=== PATIENT | male | born 1950 | race African-American/Black ===

== ENCOUNTER 2018-04-02 04:52 | Observation (INO) ==
[2018-03-27 09:33] LABS: Basophils % 0.7 % (0.0-0.8); Eosinophils # 0.1 10*3/uL (0.0-0.87); Eosinophils % 2.6 % (0.00-10.9); Hematocrit 39.9 VOL% (42.0-52.0); Hemoglobin 12.8 GM/DL (14.0-18.0); Immature Granulocytes % 0.2 %; Immature Granulocytes Absolute 0.01 #; Lymphocytes # 1.6 10*3/uL (1.4-4.0); Lymphocytes % 37.3 % (21.2-54.2); Mean Corpuscular HGB Conc 32.1 GM/DL (32-36); Mean Corpuscular Hemoglobin 32 PG (27-34); Mean Corpuscular Volume 99.3 FL (87-102); Mean Platelet Volume 9.7 FL (9.6-12.0); Monocytes # 0.4 10*3/uL (0.11-0.8); Monocytes % 8.4 % (1.7-12.7); Neutrophils # 2.1 10*3/uL (1.4-7.4); Neutrophils % 50.8 % (38.7-73.9); Platelet Count 224 T/CUMM (130-400); Red Blood Count 4.02 MC/CUMM (3.8-5.5); Red Cell Distribution Width 12.6 % (9.3-17.3); White Blood Count 4.2 T/CUMM (4-12)
[2018-03-27 09:42] LABS: PT Patient Result 10.4 SECS
[2018-03-27 09:56] LABS: Albumin 3.6 G/DL (3.4-5.0); Bilirubin,Total 1.2 MG/DL (0.2-1.0); Calcium 9.6 MG/DL (8.5-10.1); Osmolality,Calculated 280.3 MOS/KG (273-304); Potassium 3.9 MMOL/L (3.5-5.1); Total Protein 7.7 G/DL (6.4-8.3)
[2018-04-02] MEDS ORDERED: ceFAZolin 1,000 MG in SYRINGE 1 EACH IV ONE (07:00)
[2018-04-02] MEDS ORDERED: ONDANSETRON 4 MG/2 ML VIAL IV PRN (10:58)
[2018-04-02] MEDS ORDERED: ACETAMINOPHEN 325 MG TABLET PO PRN (10:58)
[2018-04-02] MEDS ORDERED: traMADol 50 MG TABLET PO SCH (11:00)
[2018-04-02] MEDS ORDERED: POTASSIUM CHLORIDE 20 MEQ TABLET PO PRN (13:38)
[2018-04-02] MEDS: APIXABAN 2.5 MG TABLET PO SCH (20:52)
[2018-04-02] MEDS: ASCORBIC ACID 500 MG TABLET PO SCH (20:53)
[2018-04-02] MEDS ORDERED: TAMSULOSIN 0.4 MG CAPSULE PO SCH (21:00)
[2018-04-02] MEDS ORDERED: ROSUVASTATIN 20 MG TABLET PO SCH (21:00)
[2018-04-03 04:50] VITALS: BP 126/79
[2018-04-03 05:42] LABS: Basophils % 0.6 % (0.0-0.8); Eosinophils # 0.2 10*3/uL (0.0-0.87); Hematocrit 37.4 VOL% (42.0-52.0); Immature Granulocytes % 0.2 %; Immature Granulocytes Absolute 0.01 #; Lymphocytes # 2.4 10*3/uL (1.4-4.0); Lymphocytes % 44.6 % (21.2-54.2); Mean Corpuscular HGB Conc 32.1 GM/DL (32-36); Mean Corpuscular Hemoglobin 32 PG (27-34); Mean Corpuscular Volume 98.4 FL (87-102); Mean Platelet Volume 10.1 FL (9.6-12.0); Monocytes # 0.4 10*3/uL (0.11-0.8); Monocytes % 8.3 % (1.7-12.7); Neutrophils # 2.3 10*3/uL (1.4-7.4); Neutrophils % 43.3 % (38.7-73.9); Platelet Count 211 T/CUMM (130-400); Red Cell Distribution Width 12.5 % (9.3-17.3); White Blood Count 5.3 T/CUMM (4-12)
[2018-04-03 06:56] LABS: Osmolality,Calculated 283.1 MOS/KG (273-304); Potassium 3.2 MMOL/L (3.5-5.1)
[2018-04-03] MEDS ORDERED: PANTOPRAZOLE 40 MG TABLET PO SCH (09:00)
[2018-04-03] MEDS ORDERED: GABAPENTIN 100 MG CAPSULE PO SCH (09:00)
[2018-04-03] MEDS ORDERED: LOSARTAN/HCTZ 50-12.5 MG TABLET PO SCH (09:00)
[2018-04-03] MEDS ORDERED: ASPIRIN EC 81 MG TABLET PO SCH (09:00)
[2018-04-03] MEDS ORDERED: POTASSIUM CHLORIDE 20 MEQ TABLET PO SCH (09:00)
[2018-04-03] MEDS: APIXABAN 2.5 MG TABLET PO SCH (10:22)
[2018-04-03] MEDS: ASCORBIC ACID 500 MG TABLET PO SCH (10:22)
== END 2018-04-03 14:25 | disposition home health service (06) ==
LOC: N.SDSINP 04:52 → N.RAD 04:52 → N.SDSINP 04:53 → N.4E 13:14
PROVIDERS: ADMIT Surgery; ATTEND Surgery

== ENCOUNTER 2018-06-18 05:46 | Inpatient (IN) ==
[2018-06-07 11:29] LABS: Basophils % 0.4 % (0.0-0.8); Eosinophils # 0.1 10*3/uL (0.0-0.87); Eosinophils % 2.6 % (0.00-10.9); Hematocrit 39.1 VOL% (42.0-52.0); Hemoglobin 12.7 GM/DL (14.0-18.0); Immature Granulocytes % 0.2 %; Immature Granulocytes Absolute 0.01 #; Lymphocytes # 2.2 10*3/uL (1.4-4.0); Lymphocytes % 40.3 % (21.2-54.2); Mean Corpuscular HGB Conc 32.5 GM/DL (32-36); Mean Corpuscular Hemoglobin 33 PG (27-34); Mean Corpuscular Volume 100.5 FL (87-102); Mean Platelet Volume 9.5 FL (9.6-12.0); Monocytes # 0.5 10*3/uL (0.11-0.8); Monocytes % 9.6 % (1.7-12.7); Neutrophils # 2.5 10*3/uL (1.4-7.4); Neutrophils % 46.9 % (38.7-73.9); Platelet Count 256 T/CUMM (130-400); Red Blood Count 3.89 MC/CUMM (3.8-5.5); Red Cell Distribution Width 12.7 % (9.3-17.3); White Blood Count 5.3 T/CUMM (4-12)
[2018-06-07 11:39] LABS: INR 0.9; PT Patient Result 10.2 SECS
[2018-06-07 12:14] LABS: Albumin 3.5 G/DL (3.4-5.0); Bilirubin,Total 0.8 MG/DL (0.2-1.0); Calcium 9.1 MG/DL (8.5-10.1); Osmolality,Calculated 275.5 MOS/KG (273-304); Potassium 3.5 MMOL/L (3.5-5.1); Total Protein 7.4 G/DL (6.4-8.3)
[2018-06-18] MEDS ORDERED: FAMOTIDINE 20 MG TABLET PO ONE (06:00)
[2018-06-18] MEDS ORDERED: THROMBIN TOPICAL (RECOMBINANT) 5,000 UNIT VIAL TOP ONE (06:24)
[2018-06-18] MEDS ORDERED: TISSUE ADHESIVE 1 EACH APPLICATOR TOP ONE (06:24)
[2018-06-18] MEDS ORDERED: LIDOCAINE 2% TOP JELLY 20 ML VIAL INTRAURETH ONE (06:24)
[2018-06-18] MEDS ORDERED: LIDOCAINE 1% 20 ML VIAL ONE (06:24)
[2018-06-18] MEDS ORDERED: HEPARIN 5,000 UNIT/1 ML VIAL ONE (06:24)
[2018-06-18] MEDS ORDERED: ceFAZolin 1,000 MG in SYRINGE 1 EACH IV ONE (06:30)
[2018-06-18] MEDS ORDERED: LACTATED RINGERS 1,000 ML IV SCH (06:30)
[2018-06-18] MEDS ORDERED: HEPARIN/NACL 0.9% 2 UNITS/ML 500 ML IV ONE (06:33)
[2018-06-18] MEDS ORDERED: NITROGLYCERIN DRIP 50 MG/250 ML BOTTLE IV ONE (06:33)
[2018-06-18] MEDS ORDERED: PHENYLEPHRINE DRIP 20 MG/250 ML PREMIX IV ONE ×2 (06:33→11:36)
[2018-06-18] MEDS ORDERED: FAMOTIDINE 20 MG TABLET ONE (06:39)
[2018-06-18] MEDS ORDERED: ceFAZolin 1,000 MG VIAL ONE (06:39)
[2018-06-18] MEDS ORDERED: HEPARIN/NACL 0.9% 2 UNITS/ML 3,000 ML IV ONE (07:12)
[2018-06-18] MEDS ORDERED: ACETAMINOPHEN 325 MG TABLET PO PRN ×2 (11:09→11:13)
[2018-06-18] MEDS ORDERED: ONDANSETRON ODT 4 MG TABLET PO PRN (11:10)
[2018-06-18] MEDS ORDERED: ONDANSETRON 4 MG/2 ML VIAL IV PRN (11:11)
[2018-06-18] MEDS ORDERED: HYDROmorphone 2 MG/1 ML VIAL IV PRN (11:11)
[2018-06-18] MEDS ORDERED: NICOTINE POLACRILEX 2 MG BC SCH (11:15)
[2018-06-18] MEDS ORDERED: fentaNYL 100 MCG/2 ML VIAL ONE (11:36)
[2018-06-18] MEDS ORDERED: PROPOFOL 200 MG/20 ML VIAL IV ONE (11:36)
[2018-06-18] MEDS ORDERED: DESFLURANE 1 UNIT/15 MINUTE INH ONE (11:36)
[2018-06-18] MEDS ORDERED: ONDANSETRON 4 MG/2 ML VIAL ONE (11:37)
[2018-06-18] MEDS ORDERED: MIDAZOLAM 2 MG/2 ML VIAL ONE (11:37)
[2018-06-18] MEDS ORDERED: ROCURONIUM 100 MG/10 ML VIAL IV ONE (11:37)
[2018-06-18] MEDS ORDERED: SODIUM CHLORIDE 0.9% 1,000 ML IV ONE (11:37)
[2018-06-18] MEDS: LACTATED RINGERS 1,000 ML IV SCH ×2 (20:11→20:51)
[2018-06-18] MEDS ORDERED: ROSUVASTATIN 20 MG TABLET PO SCH (21:00)
[2018-06-18] MEDS ORDERED: TAMSULOSIN 0.4 MG CAPSULE PO SCH (21:00)
[2018-06-19] MEDS: LACTATED RINGERS 1,000 ML IV SCH (04:06)
[2018-06-19 04:41] LABS: Hemoglobin 10.9 GM/DL (14.0-18.0)
[2018-06-19 05:14] LABS: Calcium 8.4 MG/DL (8.5-10.1); Osmolality,Calculated 281.3 MOS/KG (273-304); Potassium 3.2 MMOL/L (3.5-5.1)
[2018-06-19] MEDS ORDERED: POTASSIUM CHLORIDE 20 MEQ TABLET PO ONE (07:48)
[2018-06-19] MEDS ORDERED: LOSARTAN/HCTZ 50-12.5 MG TABLET PO SCH (09:00)
[2018-06-19] MEDS ORDERED: APIXABAN 2.5 MG TABLET PO SCH (09:00)
[2018-06-19] MEDS ORDERED: FISH OIL PO SCH (09:00)
[2018-06-19] MEDS ORDERED: FATTY ACIDS PO SCH (09:00)
[2018-06-19] MEDS ORDERED: ASCORBIC ACID 500 MG TABLET PO SCH (09:00)
[2018-06-19] MEDS ORDERED: CYANOCOBALAMIN 250 MCG PO SCH (09:00)
[2018-06-19] MEDS ORDERED: OMEGA PO SCH (09:00)
[2018-06-19] MEDS ORDERED: ASPIRIN EC 81 MG TABLET PO SCH (09:00)
[2018-06-19] MEDS ORDERED: GABAPENTIN 100 MG CAPSULE PO SCH (09:00)
[2018-06-19] MEDS ORDERED: POTASSIUM CHLORIDE 20 MEQ TABLET PO SCH (09:00)
[2018-06-19 12:09] VITALS: BP 137/81
== END 2018-06-19 14:00 | disposition home health service (06) | DRG 269 ==
LOC: N.SDSINP 05:46 → N.4E 12:34
PROVIDERS: ADMIT Surgery; ATTEND Surgery
PROC: IRERAAA (2018-06-18 07:05)

== ENCOUNTER 2021-04-20 16:00 | Inpatient (IN) ==
[2021-04-20] MEDS ORDERED: SODIUM CHLORIDE 0.9% 1,000 ML IV STA (16:38)
[2021-04-20 17:06] LABS: Hematocrit 23.9 VOL% (42.0-52.0); Hemoglobin 7.2 GM/DL (14.0-18.0); Immature Granulocytes % 0.8 %; Immature Granulocytes Absolute 0.05 #; Lymphocytes # 0.2 10*3/uL (1.4-4.0); Lymphocytes % 2.5 % (21.2-54.2); Mean Corpuscular HGB Conc 30.1 GM/DL (32-36); Mean Corpuscular Volume 99.6 FL (87-102); Mean Platelet Volume 10.4 FL (9.6-12.0); Monocytes % 3.4 % (1.7-12.7); Neutrophils % 93.3 % (38.7-73.9); Platelet Count 197 T/CUMM (130-400); White Blood Count 6.5 T/CUMM (4-12)
[2021-04-20 17:31] LABS: Albumin 1.7 G/DL (3.4-5.0); Bilirubin,Total 0.8 MG/DL (0.20-1.00); Calcium 8.9 MG/DL (8.5-10.1); Osmolality,Calculated 279.4 MOS/KG (273-304); Potassium 3.2 MMOL/L (3.5-5.1); Total Protein 6.4 G/DL (6.4-8.2)
[2021-04-20 17:51] LABS: Band Neutrophils 1 % (0-10); Lymphocytes 2 % (20-55); Segmented Neutrophils 95 % (50-85); Total Cells Counted 100
[2021-04-20 17:52] LABS: Bilirubin,Urine Negative (Negative); Blood, Urine Moderate mg/dL (Negative); Glucose,Urine (UA) Negative (Negative); Ketones,Urine Negative (Negative); Mucus,Urine Few /LPF (Occasional); Nitrite,Urine Negative (Negative); Protein,Urine 100 MG/DL; RBC,Urine 19 /HPF (0-4); Squamous Epithelial Cell,Urine Occasional /HPF (0-10); Urine Appearance CLEAR (Clear); Urine Color Yellow (Yellow); Urine Specific Gravity 1.019 (1.001-1.035)
[2021-04-20 17:55] LABS: Hypochromasia 1+; Microcytosis 1+; Target Cells Slight
[2021-04-20] MEDS ORDERED: cefTRIAXone 1,000 MG in SODIUM CHLORIDE 0.9% 100 ML IV STA (18:26)
[2021-04-20] MEDS ORDERED: GLUCAGON 1 MG VIAL IM PRN (18:46)
[2021-04-20] MEDS ORDERED: DEXTROSE 50% 25 GM/50 ML SYRINGE IV PRN (18:46)
[2021-04-20 18:49] LABS: ABG Base Excess 3.6 MMOL/L (-2.5-2.5); ABG HCO3 27.6 MMOL/L (20-26); ABG PCO2 36.1 MM HG (35-48); ABG PH 7.484 (7.35-7.45); ABG PO2 77.3 MM HG (80-95); ABG TCO2 25.8 MMOL/L (23-27)
[2021-04-20] MEDS ORDERED: SODIUM CHLORIDE 0.9% 1,000 ML IV PRN (18:55)
[2021-04-20] MEDS: POTASSIUM CHLORIDE RIDER 10 MEQ/100 ML PREMIX IV SCH ×4 (19:50→23:26)
[2021-04-20] MEDS: DEXTROSE 5% NACL 0.9% 1,000 ML IV SCH (19:50)
[2021-04-20] MEDS ORDERED: ACETAMINOPHEN 650 MG SUPP RECTAL PRN (20:02)
[2021-04-20] MEDS: HEPARIN 5,000 UNIT/1 ML VIAL SUBCUT SCH (21:21)
[2021-04-20] MEDS: PANTOPRAZOLE 40 MG VIAL IV SCH (21:21)
[2021-04-20] MEDS: INSULIN LISPRO 100 UNIT/ML SUBCUT SCH (21:22)
[2021-04-21] MEDS: HEPARIN 5,000 UNIT/1 ML VIAL SUBCUT SCH ×3 (04:43→20:53)
[2021-04-21 08:24] LABS: Hematocrit 22.9 VOL% (42.0-52.0); Hemoglobin 7.3 GM/DL (14.0-18.0); Immature Granulocytes % 0.9 %; Immature Granulocytes Absolute 0.07 #; Lymphocytes # 0.2 10*3/uL (1.4-4.0); Lymphocytes % 2.5 % (21.2-54.2); Mean Corpuscular HGB Conc 31.9 GM/DL (32-36); Mean Corpuscular Volume 94.2 FL (87-102); Mean Platelet Volume 10.7 FL (9.6-12.0); Monocytes % 4.5 % (1.7-12.7); Neutrophils % 92.1 % (38.7-73.9); Platelet Count 167 T/CUMM (130-400); Red Blood Count 2.43 MC/CUMM (3.8-5.5); Red Cell Distribution Width 16.8 % (9.3-17.3); White Blood Count 7.7 T/CUMM (4-12)
[2021-04-21 08:45] LABS: Lymphocytes 2 % (20-55); Segmented Neutrophils 93 % (50-85); Total Cells Counted 100
[2021-04-21 08:47] LABS: Platelet Estimate Adequate
[2021-04-21 08:48] LABS: Hypochromasia 1+; Microcytosis 1+
[2021-04-21 08:55] LABS: % Iron Saturation 11.5 % (18-50); Ferritin 1471.9 ng/mL (26-388)
[2021-04-21] MEDS: INSULIN LISPRO 100 UNIT/ML SUBCUT SCH ×4 (08:56→20:53)
[2021-04-21] MEDS: PANTOPRAZOLE 40 MG VIAL IV SCH ×2 (08:56→20:53)
[2021-04-21 08:58] LABS: Folate 6.89 NG/ML (5.38-24.0)
[2021-04-21 09:01] LABS: Calcium 8.6 MG/DL (8.5-10.1); Osmolality,Calculated 271.1 MOS/KG (273-304); Potassium 2.9 MMOL/L (3.5-5.1); Thyroid Stimulating Hormone 0.302 uIU/ml (0.358-3.74)
[2021-04-21] MEDS: DEXTROSE 5% NACL 0.9% 1,000 ML IV SCH (09:23)
[2021-04-21] MEDS ORDERED: SODIUM CHLORIDE 0.9% 1,000 ML IV PRN (09:40)
[2021-04-21] MEDS ORDERED: MAGNESIUM SULF RIDER 4 GM/100 ML PREMIX IV PRN (09:42)
[2021-04-21] MEDS: SODIUM CHLORIDE 0.9% 1,000 ML IV SCH (12:33)
[2021-04-21] MEDS: VANCOMYCIN INJ 1,000 MG in SODIUM CHLORIDE 0.9% 250 ML IV SCH ×2 (12:33→23:15)
[2021-04-21] MEDS: POTASSIUM CHLORIDE RIDER 10 MEQ/100 ML PREMIX IV PRN ×5 (15:20→20:52)
[2021-04-21] MEDS: cefTRIAXone 1,000 MG in SODIUM CHLORIDE 0.9% 100 ML IV SCH (20:54)
[2021-04-21] MEDS: MAGNESIUM SULF RIDER 2 GM/50 ML PREMIX IV PRN (22:02)
[2021-04-21] MEDS ORDERED: HEPARIN LOCK FLUSH 500 UNIT/5 ML SYRINGE IV SCH (23:45)
[2021-04-22] MEDS: HEPARIN 5,000 UNIT/1 ML VIAL SUBCUT SCH ×3 (04:30→20:46)
[2021-04-22 04:48] LABS: Basophils % 0.1 % (0.0-0.8); Hematocrit 29.4 VOL% (42.0-52.0); Immature Granulocytes % 0.8 %; Immature Granulocytes Absolute 0.07 #; Lymphocytes # 0.3 10*3/uL (1.4-4.0); Mean Corpuscular HGB Conc 32.3 GM/DL (32-36); Mean Corpuscular Volume 92.2 FL (87-102); Mean Platelet Volume 11.3 FL (9.6-12.0); Monocytes % 3.7 % (1.7-12.7); Neutrophils % 92.4 % (38.7-73.9); Platelet Count 155 T/CUMM (130-400); Red Cell Distribution Width 16.4 % (9.3-17.3); White Blood Count 8.3 T/CUMM (4-12)
[2021-04-22 05:11] LABS: Calcium 8.2 MG/DL (8.5-10.1); Osmolality,Calculated 272.7 MOS/KG (273-304); Potassium 3.1 MMOL/L (3.5-5.1)
[2021-04-22 05:13] LABS: Red Blood Count 3.19 MC/CUMM (3.8-5.5)
[2021-04-22 05:14] LABS: Hemoglobin 9.5 GM/DL (14.0-18.0)
[2021-04-22 05:15] LABS: Lymphocytes 1 % (20-55); Segmented Neutrophils 96 % (50-85); Total Cells Counted 100
[2021-04-22 05:16] LABS: Hypochromasia 1+; Microcytosis 1+; Ovalocytes Slight; Platelet Estimate Adequate; Target Cells Slight
[2021-04-22] MEDS: POTASSIUM CHLORIDE RIDER 10 MEQ/100 ML PREMIX IV PRN ×3 (05:43→09:59)
[2021-04-22] MEDS: SODIUM CHLORIDE 0.9% 1,000 ML IV SCH ×4 (05:44→18:11)
[2021-04-22] MEDS: INSULIN LISPRO 100 UNIT/ML SUBCUT SCH ×4 (07:42→21:19)
[2021-04-22] MEDS: PANTOPRAZOLE 40 MG VIAL IV SCH ×2 (08:52→20:46)
[2021-04-22] MEDS ORDERED: HEPARIN LOCK FLUSH 500 UNIT/5 ML SYRINGE IV PRN (09:00)
[2021-04-22] MEDS: VANCOMYCIN INJ 1,000 MG in SODIUM CHLORIDE 0.9% 250 ML IV SCH ×2 (12:24→23:28)
[2021-04-22] MEDS: ROSUVASTATIN 20 MG TABLET PO SCH (20:45)
[2021-04-22] MEDS: APIXABAN 2.5 MG TABLET PO SCH (20:45)
[2021-04-22] MEDS: cefTRIAXone 1,000 MG in SODIUM CHLORIDE 0.9% 100 ML IV SCH (20:46)
[2021-04-23] MEDS: SODIUM CHLORIDE 0.9% 1,000 ML IV SCH ×3 (03:37→19:15)
[2021-04-23] MEDS: HEPARIN 5,000 UNIT/1 ML VIAL SUBCUT SCH ×3 (05:18→21:09)
[2021-04-23 05:31] LABS: Basophils % 0.1 % (0.0-0.8); Eosinophils % 0.1 % (0.00-10.9); Hematocrit 30.2 VOL% (42.0-52.0); Hemoglobin 9.8 GM/DL (14.0-18.0); Immature Granulocytes % 0.6 %; Immature Granulocytes Absolute 0.04 #; Lymphocytes # 0.2 10*3/uL (1.4-4.0); Lymphocytes % 3.1 % (21.2-54.2); Mean Corpuscular HGB Conc 32.5 GM/DL (32-36); Mean Corpuscular Volume 93.8 FL (87-102); Mean Platelet Volume 11.2 FL (9.6-12.0); Monocytes % 3.2 % (1.7-12.7); Neutrophils % 92.9 % (38.7-73.9); Platelet Count 163 T/CUMM (130-400); Red Blood Count 3.22 MC/CUMM (3.8-5.5); Red Cell Distribution Width 16.4 % (9.3-17.3); White Blood Count 6.8 T/CUMM (4-12)
[2021-04-23 05:57] LABS: Calcium 8.1 MG/DL (8.5-10.1); Osmolality,Calculated 280.3 MOS/KG (273-304); Potassium 2.9 MMOL/L (3.5-5.1)
[2021-04-23 05:58] LABS: Anisocytosis 2+; Band Neutrophils 25 % (0-10); Burr Cells Few; Platelet Estimate Normal; Segmented Neutrophils 74 % (50-85); Total Cells Counted 100
[2021-04-23] MEDS: INSULIN LISPRO 100 UNIT/ML SUBCUT SCH ×3 (09:26→18:08)
[2021-04-23] MEDS: TAMSULOSIN 0.4 MG CAPSULE PO SCH (09:27)
[2021-04-23] MEDS: PANTOPRAZOLE 40 MG VIAL IV SCH ×2 (10:14→21:08)
[2021-04-23] MEDS: POTASSIUM CHLORIDE RIDER 10 MEQ/100 ML PREMIX IV PRN (10:14)
[2021-04-23] MEDS: APIXABAN 2.5 MG TABLET PO SCH ×2 (10:15→21:09)
[2021-04-23] MEDS: FERROUS SULFATE 325 MG TABLET PO SCH (10:15)
[2021-04-23] MEDS: MULTIVITAMIN LIQUID (CENTRUM) 60 ML BOTTLE NG SCH (10:15)
[2021-04-23] MEDS ORDERED: POTASSIUM PHOSPHATE 30 MMOL in SODIUM CHLORIDE 0.9% 250 ML IV ONE (12:32)
[2021-04-23] MEDS: VANCOMYCIN INJ 1,000 MG in SODIUM CHLORIDE 0.9% 250 ML IV SCH (13:48)
[2021-04-23] MEDS ORDERED: VANCOMYCIN INJ 1,000 MG in SODIUM CHLORIDE 0.9% 250 ML IV SCH (14:00)
[2021-04-23] MEDS ORDERED: FUROSEMIDE 40 MG/4 ML VIAL IV ONE (18:57)
[2021-04-23] MEDS: ROSUVASTATIN 20 MG TABLET PO SCH (21:09)
[2021-04-23] MEDS: cefTRIAXone 1,000 MG in SODIUM CHLORIDE 0.9% 100 ML IV SCH (21:09)
[2021-04-24] MEDS: SODIUM CHLORIDE 0.9% 1,000 ML IV SCH (03:11)
[2021-04-24] MEDS: INSULIN LISPRO 100 UNIT/ML SUBCUT SCH ×4 (04:07→15:50)
[2021-04-24 05:41] LABS: Osmolality,Calculated 275.5 MOS/KG (273-304); Potassium 2.8 MMOL/L (3.5-5.1)
[2021-04-24] MEDS: HEPARIN 5,000 UNIT/1 ML VIAL SUBCUT SCH ×3 (05:42→20:41)
[2021-04-24] MEDS ORDERED: POTASSIUM PHOSPHATE 30 MMOL in SODIUM CHLORIDE 0.9% 250 ML IV ONE (08:19)
[2021-04-24] MEDS ORDERED: FUROSEMIDE 20 MG/2 ML VIAL IV ONE (08:20)
[2021-04-24] MEDS: PANTOPRAZOLE 40 MG VIAL IV SCH ×2 (10:20→20:41)
[2021-04-24] MEDS: APIXABAN 2.5 MG TABLET PO SCH ×2 (10:21→20:41)
[2021-04-24] MEDS: MULTIVITAMIN LIQUID (CENTRUM) 60 ML BOTTLE NG SCH (10:21)
[2021-04-24] MEDS: POTASSIUM CHLORIDE 20 MEQ PACK PO SCH ×2 (10:21→10:22)
[2021-04-24] MEDS: TAMSULOSIN 0.4 MG CAPSULE PO SCH (10:21)
[2021-04-24] MEDS: FERROUS SULFATE 325 MG TABLET PO SCH (10:21)
[2021-04-24] MEDS ORDERED: oxyCODONE/ACETAMINOPHEN 5-325 MG TABLET PO PRN (12:12)
[2021-04-24] MEDS ORDERED: FUROSEMIDE 20 MG/2 ML VIAL ONE (16:41)
[2021-04-24] MEDS: cefTRIAXone 1,000 MG in SODIUM CHLORIDE 0.9% 100 ML IV SCH (20:40)
[2021-04-24] MEDS: ROSUVASTATIN 20 MG TABLET PO SCH (20:41)
[2021-04-24] MEDS: MAGNESIUM SULF RIDER 2 GM/50 ML PREMIX IV PRN (22:23)
[2021-04-25] MEDS: INSULIN LISPRO 100 UNIT/ML SUBCUT SCH ×4 (00:45→18:00)
[2021-04-25] MEDS: HEPARIN 5,000 UNIT/1 ML VIAL SUBCUT SCH (03:00)
[2021-04-25 06:16] LABS: Eosinophils % 0.7 % (0.00-10.9); Hematocrit 31.8 VOL% (42.0-52.0); Hemoglobin 10.2 GM/DL (14.0-18.0); Immature Granulocytes % 0.7 %; Immature Granulocytes Absolute 0.04 #; Lymphocytes # 0.4 10*3/uL (1.4-4.0); Mean Corpuscular HGB Conc 32.1 GM/DL (32-36); Mean Corpuscular Volume 92.4 FL (87-102); Mean Platelet Volume 11.1 FL (9.6-12.0); Monocytes % 3.5 % (1.7-12.7); Neutrophils % 88.1 % (38.7-73.9); Platelet Count 147 T/CUMM (130-400); Red Blood Count 3.44 MC/CUMM (3.8-5.5); Red Cell Distribution Width 16.1 % (9.3-17.3); White Blood Count 5.7 T/CUMM (4-12)
[2021-04-25 06:26] LABS: Calcium 7.9 MG/DL (8.5-10.1); Osmolality,Calculated 274.7 MOS/KG (273-304); Potassium 3.5 MMOL/L (3.5-5.1)
[2021-04-25 07:01] LABS: Eosinophils 1 % (0-10); Hypochromasia 1+; Lymphocytes 1 % (20-55); Segmented Neutrophils 94 % (50-85); Total Cells Counted 100
[2021-04-25 07:02] LABS: Anisocytosis 1+; Microcytosis 1+; Ovalocytes Slight; Platelet Estimate Adequate
[2021-04-25] MEDS ORDERED: FUROSEMIDE 40 MG/4 ML VIAL IV SCH (09:00)
[2021-04-25] MEDS: APIXABAN 2.5 MG TABLET PO SCH (09:41)
[2021-04-25] MEDS: FERROUS SULFATE 325 MG TABLET PO SCH (09:41)
[2021-04-25] MEDS: MULTIVITAMIN LIQUID (CENTRUM) 60 ML BOTTLE NG SCH (09:43)
[2021-04-25] MEDS: TAMSULOSIN 0.4 MG CAPSULE PO SCH (09:45)
[2021-04-25] MEDS: PANTOPRAZOLE 40 MG VIAL IV SCH ×2 (09:46→21:05)
[2021-04-25] MEDS: CLOPIDOGREL 75 MG TABLET PO SCH (09:50)
[2021-04-25] MEDS: APIXABAN 5 MG TABLET PO SCH (21:04)
[2021-04-25] MEDS: ROSUVASTATIN 20 MG TABLET PO SCH (21:04)
[2021-04-25] MEDS: cefTRIAXone 1,000 MG in SODIUM CHLORIDE 0.9% 100 ML IV SCH (21:04)
[2021-04-26] MEDS: INSULIN LISPRO 100 UNIT/ML SUBCUT SCH ×4 (00:26→19:54)
[2021-04-26 05:49] LABS: Calcium 8.1 MG/DL (8.5-10.1); Potassium 2.8 MMOL/L (3.5-5.1)
[2021-04-26 05:50] LABS: Basophils % 0.2 % (0.0-0.8); Eosinophils % 0.6 % (0.00-10.9); Hematocrit 30.3 VOL% (42.0-52.0); Hemoglobin 9.6 GM/DL (14.0-18.0); Immature Granulocytes % 0.6 %; Immature Granulocytes Absolute 0.03 #; Lymphocytes # 0.7 10*3/uL (1.4-4.0); Lymphocytes % 14.2 % (21.2-54.2); Mean Corpuscular HGB Conc 31.7 GM/DL (32-36); Mean Corpuscular Volume 94.1 FL (87-102); Mean Platelet Volume 11.5 FL (9.6-12.0); Monocytes % 3.8 % (1.7-12.7); Neutrophils % 80.6 % (38.7-73.9); Platelet Count 151 T/CUMM (130-400); Red Blood Count 3.22 MC/CUMM (3.8-5.5); Red Cell Distribution Width 15.9 % (9.3-17.3)
[2021-04-26 06:27] LABS: Anisocytosis 1+; Macrocytosis Slight; Ovalocytes Few; Platelet Estimate Normal
[2021-04-26] MEDS: POTASSIUM CHLORIDE RIDER 20 MEQ/100 ML PREMIX IV PRN (06:31)
[2021-04-26] MEDS ORDERED: POTASSIUM PHOSPHATE 30 MMOL in SODIUM CHLORIDE 0.9% 250 ML IV ONE (08:00)
[2021-04-26] MEDS ORDERED: FUROSEMIDE 40 MG/4 ML VIAL IV ONE (08:11)
[2021-04-26] MEDS ORDERED: TUBERCULIN SKIN TEST 0.1 ML SYRINGE INTRADERM ONE (09:30)
[2021-04-26] MEDS: TAMSULOSIN 0.4 MG CAPSULE PO SCH (10:27)
[2021-04-26] MEDS: FERROUS SULFATE 325 MG TABLET PO SCH (10:27)
[2021-04-26] MEDS: CLOPIDOGREL 75 MG TABLET PO SCH (10:27)
[2021-04-26] MEDS: APIXABAN 5 MG TABLET PO SCH ×2 (10:27→20:23)
[2021-04-26] MEDS: MULTIVITAMIN LIQUID (CENTRUM) 60 ML BOTTLE NG SCH (10:29)
[2021-04-26] MEDS: PANTOPRAZOLE 40 MG VIAL IV SCH (10:56)
[2021-04-26] MEDS: ROSUVASTATIN 20 MG TABLET PO SCH (20:23)
[2021-04-26] MEDS: cefTRIAXone 1,000 MG in SODIUM CHLORIDE 0.9% 100 ML IV SCH (20:24)
[2021-04-26] MEDS: OMEPRAZOLE ODT 20 MG TABLET PER TUBE SCH (20:24)
[2021-04-27] MEDS: INSULIN LISPRO 100 UNIT/ML SUBCUT SCH ×4 (01:02→19:48)
[2021-04-27 06:24] LABS: Calcium 8.3 MG/DL (8.5-10.1); Potassium 2.8 MMOL/L (3.5-5.1)
[2021-04-27] MEDS: POTASSIUM CHLORIDE RIDER 20 MEQ/100 ML PREMIX IV PRN ×4 (06:38→23:34)
[2021-04-27] MEDS ORDERED: FUROSEMIDE 40 MG/4 ML VIAL IV ONE (08:13)
[2021-04-27] MEDS: TAMSULOSIN 0.4 MG CAPSULE PO SCH (08:32)
[2021-04-27] MEDS: CLOPIDOGREL 75 MG TABLET PO SCH (08:32)
[2021-04-27] MEDS: FERROUS SULFATE 325 MG TABLET PO SCH (08:32)
[2021-04-27] MEDS: APIXABAN 5 MG TABLET PO SCH ×2 (08:32→20:55)
[2021-04-27] MEDS: OMEPRAZOLE ODT 20 MG TABLET PER TUBE SCH ×2 (08:32→20:55)
[2021-04-27] MEDS: MULTIVITAMIN LIQUID (CENTRUM) 60 ML BOTTLE NG SCH (08:33)
[2021-04-27] MEDS ORDERED: POTASSIUM CHLORIDE 20 MEQ PACK PO ONE (09:50)
[2021-04-27] MEDS: POTASSIUM CHLORIDE RIDER 10 MEQ/100 ML PREMIX IV PRN (10:24)
[2021-04-27] MEDS: cefTRIAXone 1,000 MG in SODIUM CHLORIDE 0.9% 100 ML IV SCH (20:54)
[2021-04-27] MEDS: ROSUVASTATIN 20 MG TABLET PO SCH (20:56)
[2021-04-28] MEDS: INSULIN LISPRO 100 UNIT/ML SUBCUT SCH ×4 (00:43→19:23)
[2021-04-28 05:09] LABS: Basophils % 0.4 % (0.0-0.8); Eosinophils # 0.1 10*3/uL (0.0-0.87); Eosinophils % 1.3 % (0.00-10.9); Hematocrit 30.5 VOL% (42.0-52.0); Hemoglobin 9.7 GM/DL (14.0-18.0); Immature Granulocytes % 0.5 %; Immature Granulocytes Absolute 0.03 #; Lymphocytes # 1.4 10*3/uL (1.4-4.0); Lymphocytes % 25.8 % (21.2-54.2); Mean Corpuscular HGB Conc 31.8 GM/DL (32-36); Mean Corpuscular Volume 94.7 FL (87-102); Monocytes % 3.7 % (1.7-12.7); Neutrophils % 68.3 % (38.7-73.9); Platelet Count 169 T/CUMM (130-400); Red Blood Count 3.22 MC/CUMM (3.8-5.5); Red Cell Distribution Width 15.8 % (9.3-17.3); White Blood Count 5.5 T/CUMM (4-12)
[2021-04-28 05:36] LABS: Calcium 8.6 MG/DL (8.5-10.1); Potassium 3.4 MMOL/L (3.5-5.1)
[2021-04-28] MEDS: CLOPIDOGREL 75 MG TABLET PO SCH (09:58)
[2021-04-28] MEDS: TAMSULOSIN 0.4 MG CAPSULE PO SCH (09:58)
[2021-04-28] MEDS: FERROUS SULFATE 325 MG TABLET PO SCH (09:58)
[2021-04-28] MEDS: APIXABAN 5 MG TABLET PO SCH ×2 (09:58→20:15)
[2021-04-28] MEDS: OMEPRAZOLE ODT 20 MG TABLET PER TUBE SCH ×2 (09:58→20:15)
[2021-04-28] MEDS: MULTIVITAMIN LIQUID (CENTRUM) 60 ML BOTTLE NG SCH (09:59)
[2021-04-28] MEDS ORDERED: cefTRIAXone 2,000 MG in SODIUM CHLORIDE 0.9% 100 ML IV SCH ×2 (16:00→18:00)
[2021-04-28] MEDS: ROSUVASTATIN 20 MG TABLET PO SCH (20:15)
[2021-04-29] MEDS: INSULIN LISPRO 100 UNIT/ML SUBCUT SCH ×3 (00:07→11:40)
[2021-04-29] MEDS: APIXABAN 5 MG TABLET PO SCH (09:47)
[2021-04-29] MEDS: FERROUS SULFATE 325 MG TABLET PO SCH (09:47)
[2021-04-29] MEDS: CLOPIDOGREL 75 MG TABLET PO SCH (09:48)
[2021-04-29] MEDS: TAMSULOSIN 0.4 MG CAPSULE PO SCH (09:48)
[2021-04-29] MEDS: OMEPRAZOLE ODT 20 MG TABLET PER TUBE SCH (09:48)
[2021-04-29] MEDS: MULTIVITAMIN LIQUID (CENTRUM) 60 ML BOTTLE NG SCH (09:58)
[2021-04-29 13:05] VITALS: BP 107/74
[2021-04-29] MEDS ORDERED: HEPARIN LOCK FLUSH 500 UNIT/5 ML SYRINGE IV ONE (13:12)
== END 2021-04-29 14:20 | disposition swing bed (61) | DRG 65 ==
LOC: EDBD → EDUNIT# → N.ED 16:00 → SUATTDRO 18:46 → N.EDINP 18:46 → N.2W 19:44 → N.2E 04-27 11:05
PROVIDERS: ADMIT Internal Medicine; ATTEND Internal Medicine